=== PATIENT | female | born 1950 ===

== ENCOUNTER 2024-11-05 10:13 | Outpatient (RCR) | payer OTHER, SELFPAY | END 2024-11-05 23:59 | disposition home or self-care (01) | LOC: RPT 10:13 | PROVIDERS: ATTENDING PHYSICIAN Family Medicine | DX: M25.511 Pain in right shoulder (principal); Z73.6 Limitation of activities due to disability | CPT/HCPCS: 97110; 97140; 97162 ==

== ENCOUNTER 2024-12-06 09:34 | Outpatient (RCR) | payer OTHER, SELFPAY | END 2024-12-06 23:59 | disposition home or self-care (01) | LOC: RPT 09:34 | PROVIDERS: ATTENDING PHYSICIAN Family Medicine | DX: M25.511 Pain in right shoulder (principal); Z73.6 Limitation of activities due to disability; M62.81 Muscle weakness (generalized) | CPT/HCPCS: 97010; 97110; 97140 ==

== ENCOUNTER 2025-01-03 07:40 | Outpatient (RCR) | payer OTHER, SELFPAY | END 2025-01-03 23:59 | disposition home or self-care (01) | LOC: RPT 07:40 | PROVIDERS: ATTENDING PHYSICIAN Family Medicine | DX: M25.511 Pain in right shoulder (principal); Z73.6 Limitation of activities due to disability; M62.81 Muscle weakness (generalized); M54.50 Low back pain, unspecified | CPT/HCPCS: 97010; 97110 ==

== ENCOUNTER 2025-01-16 09:05 | Outpatient (RCR) | payer OTHER, SELFPAY | END 2025-01-16 23:59 | disposition home or self-care (01) | LOC: RPT 09:05 | PROVIDERS: ATTENDING PHYSICIAN Family Medicine | DX: M25.511 Pain in right shoulder (principal); Z73.6 Limitation of activities due to disability; M62.81 Muscle weakness (generalized); M54.50 Low back pain, unspecified | CPT/HCPCS: 97010; 97110 ==